=== PATIENT | male | born 1950 | race African-American/Black ===

== ENCOUNTER → 2020-03-02 | Outpatient (CLI) | payer MEDICARE | LOC: OD 15:40 | PROVIDERS: ATTEND Surgery | DX: D64.9 Anemia, unspecified (principal); R19.5 Other fecal abnormalities; Z85.048 Personal history of other malignant neoplasm of rectum, rectosigmoid junction, and anus | CPT/HCPCS: 36415; 82378 ==

== ENCOUNTER → 2020-03-11 | Outpatient (CLI) | payer MEDICARE, OTHER ==
--- NOTE | 2020-03-11 13:23 | RADIOLOGY REPORT (SQ) ---
EXAM DESCRIPTION: CT ABDOMEN WITH IV ORAL CONT IMAGES COMPLETED DATE/TIME: 03/11/2020 11:43 am REASON FOR STUDY: (R10.31)RIGHT LOWER QUADRANT PAIN R10.31 RIGHT LOWER QUADRANT PAIN COMPARISON: None. TECHNIQUE: CT scan of the abdomen performed with intravenous and with oral contrast using helical sc anning technique with dynamic intravenous contrast injection. Images reviewed with lung, soft tissue, and bone windows. Reconstructed coronal and sagittal MPR images reviewed. Delayed images for evaluat ion of the urinary system also acquired and evaluated. All images stored on PACS. All CT scanners at this facility use dose modulation, iterative reconstruc tion, and/or weight based dosing when appropriate to reduce radiation dose to as low as reasonably ac hievable (ALARA). [facility]: Dose Right [facility]: CareDose [facility]: Dose Right [facility]: Teradose 4D [facility]: HipLogic CONTRAST TYPE AND DOSE: contrast/concentration: Isovue 350.00 mmol/ml; Total Contrast Delivered: 96. 0 ml; Total Saline Delivered: 71.0 ml RENAL FUNCTION: Creatinine 1.3 RADIATION DOSE: CT Rad equipment meets quality standard of care and radiation dose reduction techniq ues were employed. CTDIvol: 4.3 - 4.3 mGy. DLP: 773 mGy-cm. . LIMITATIONS: None. FINDINGS: LOWER CHEST: No significant findings. No nodules or infiltrates. LIVER: Normal size. No masses. No dilated ducts. SPLEEN: Normal size. No focal lesions. PANCREAS: No masses. No significant calcifications. No adjacent inflammation or peripancreatic fluid collections. Pancreatic duct not dilated. GALLBLADDER: No identified stones by CT criteria. No inflammatory changes to suggest cholecystitis. ADRENAL GLANDS: No significant masses or asymmetry. RIGHT KIDNEY AND URETER: No solid masses. No significant calcifications. No hydronephrosis or hyd roureter. LEFT KIDNEY AND URETER: No solid masses. No significant calcifications. No hydronephrosis or hydr oureter. AORTA AND VESSELS: No aneurysm. No dissection. Renal arteries, SMA, celiac without stenosis. RETROPERITONEUM: No retroperitoneal adenopathy, hemorrhage or masses. BOWEL AND PERITONEAL CAVITY: Left lower quadrant colostomy. No bowel obstruction. No obvious bowel mass. Contrast is in the distal small bowel and colon. APPENDIX: Normal. PELVIS: The urinary bladder is normal. No pelvic mass or fluid collection. ABDOMINAL WALL: No masses. No hernias. BONES: No significant or acute findings. OTHER: No other significant finding. IMPRESSION: Colostomy. No acute findings in the abdomen or pelvis. There is no evidence of metasta tic disease. TECHNICAL DOCUMENTATION: JOB ID: [id number] Quality ID # [id number]: Final reports with documentation of one or more dose reduction techniques (e.g., Au tomated exposure control, adjustment of the mA and/or kV according to patient size, use of iterative reconstruction technique) 2010 [employer]- All Rights Reserved Reading location - IP/workstation name: [email or web address]
== END ==
LOC: RAD 10:12
PROVIDERS: ATTEND Surgery
DX: R10.31 Right lower quadrant pain (principal); K92.1 Melena; Z85.048 Personal history of other malignant neoplasm of rectum, rectosigmoid junction, and anus
CPT/HCPCS: 74160; 82565

== ENCOUNTER 2020-03-31 11:14 | Day surgery (SDC) | payer MEDICARE ==
[~2020-03-31 11:14] MED LIST: PROPOFOL INJ 200 MG/20 ML VIAL IV ONE
[2020-03-31 14:15] VITALS: BP 151/68
--- NOTE | 2020-03-31 16:42 | Discharge Summary ---
Discharge Summary (SDC) - Discharge Final Diagnosis: Colon polyps, history of rectal cancer Date of Surgery: 03/31/20 Discharge Date: 03/31/20 Condition: Stable Forms: EU Anesthesia D/C Instructions, Discharge POC-Surgical Service Treatment or Instructions: NO DRIVING TODAY MAY ADVANCE DIET TOLERATED CALL OFFICE FOR FOLLOW-UP APPOINTMENT in 1-2 weeks Referrals: TITO VALDEZ MD [ACTIVE STAFF] - Discharge Diet: As Tolerated Respiratory Treatments at Home: Deep Breathing/Coughing Discharge Activity: Activity As Tolerated, No Driving Home Care Assistance: None Needed Report the Following to Your Physician Immediately: Shortness of Breath, Nausea, Vomiting, Increase in Pain, Fever over 101 Degrees, Unusual Bleeding, IV Site Infection Signs
--- NOTE | 2020-03-31 16:50 | Operative Report ---
Nonrecallable Operative Report DATE OF SURGERY: 03/31/20 PREOPERATIVE DIAGNOSIS: History of rectal cancer, melena POSTOPERATIVE DIAGNOSIS: 1. Same as above. 2. Multiple colon polyps throughout the colon OPERATION: 1. Colonoscopy to the cecum, through stoma. 2. Hot biopsy of small cecal polyp. 3. Snare polypectomy of multiple colonic polyps (6 in total) SURGEON: TITO VALDEZ ANESTHESIA: LMAC TISSUE REMOVED OR ALTERED: 1. Cecal polyp, hot biopsy. 2. Ascending colon polyp. 3. Hepatic flexure polyp x3. 4. Distal transverse colon polyp. 5. Proximal transverse colon polyp. COMPLICATIONS: None apparent ESTIMATED BLOOD LOSS: Minimal PROCEDURE: Drains/implants: None. Procedure in detail: After informed consent was obtained, the patient was brought into the operating room and laid in the supine position. The colostomy bag was removed, and the colonoscope was inserted into the stoma. The scope was pushed past the sigmoid colon, descending colon, across the transverse colon, down the ascending colon, and into the cecum. The ileocecal valve and appendiceal orifice were identified. The scope was then withdrawn, circumferentially noting the mucosa. The prep was very good. In the cecum, a small diminutive polyp was identified. It was removed in its entirety using hot biopsy forceps. The scope was then withdrawn into the ascending colon where a larger polyp was identified. This polyp was removed via hot snare polypectomy. The scope was withdrawn into the hepatic flexure where 3 polyps were identified in close proximity to 1 another. All 3 of these were removed completely with hot snare polypectomy. The scope was withdrawn into the transverse colon. A polyp was found in the proximal and distal aspects of the transverse colon. These were also removed via snare polypectomy. The scope was then withdrawn through the remainder of the colon and out the colostomy. At this time, the procedure was concluded. All sponge, instrument, and needle counts were correct x2. Condition: Stable.
== END 2020-03-31 14:17 | disposition home or self-care (01) ==
LOC: END 11:14
PROVIDERS: ATTEND Surgery
DX: D12.3 Benign neoplasm of transverse colon (principal); D12.0 Benign neoplasm of cecum; D12.2 Benign neoplasm of ascending colon; Z85.048 Personal history of other malignant neoplasm of rectum, rectosigmoid junction, and anus; Z86.010 Personal history of colon polyps; Z93.3 Colostomy status; Z92.21 Personal history of antineoplastic chemotherapy; Z92.3 Personal history of irradiation; I10 Essential (primary) hypertension; M83.9 Adult osteomalacia, unspecified; A88.1 Epidemic vertigo; Z79.899 Other long term (current) drug therapy; N40.1 Benign prostatic hyperplasia with lower urinary tract symptoms; N39.498 Other specified urinary incontinence; R35.0 Frequency of micturition; Z96.0 Presence of urogenital implants; Z01.812 Encounter for preprocedural laboratory examination; Z20.822 Contact with and (suspected) exposure to COVID-19; M19.90 Unspecified osteoarthritis, unspecified site
CPT/HCPCS: 44392; 44394; 88305 ×2; 00811; U0003; J2704; C9803; 44388; 811; 87635